=== PATIENT | female | born 1945 ===

== ENCOUNTER 2024-05-19 06:44 | Day surgery (SDC) | payer MEDICARE, SELFPAY ==
[2024-05-15 11:09] LABS: Hematocrit 40.7 % (37.0-47.0); Hemoglobin 13.8 g/dL (12.0-16.0); Mean Corp Hgb Conc. 33.9 g/dL (33.0-37.0); Mean Corpuscular Volume 88.5 fL (81.0-99.0); Mean Platelet Volume 8.9 fL (7.4-10.4); Platelet Count 245 10^3/uL (130-400); White Blood Cell Count 4.3 10^3/uL (4.8-10.8)
[2024-05-15 13:27] LABS: Blood Urea Nitrogen 18 mg/dl (7-17); Calcium 9.7 mg/dl (8.4-10.2); Carbon Dioxide 25 mmol/L (22-30); Chloride 104 mmol/L (98-107); Glucose 96 mg/dl (70-99); Potassium 4.7 mmol/L (3.5-5.1); Sodium 139 mmol/L (135-145); eGFR > 60.00
[2024-05-19] VITALS (22 sets, daily range): BP systolic 93–143; BP diastolic 51–72; BMI 32.5
[2024-05-19] MEDS: HEPARIN 5000 UNITS SC (10:04)
[2024-05-19] MEDS: Pyridium 200 MG PO (10:05)
[2024-05-19] MEDS: NORMOSOL-R 1000 IV ×2 (10:05→20:36)
[2024-05-19] MEDS: EMEND 40 MG PO (10:11)
[2024-05-19] MEDS: DILAUDID 0.5 MG IV (13:38)
--- NOTE | 2024-05-19 14:19 | SUR.PHASEI ---
Pt more drowsy O2 sat in 80s, 02 4L applied with O2 sat 94-98%. HR rhythm chris with PACs, ? PVCs, Pt denies chest pain or SOB, Dr Phillips aware, 12 Lead EKG orderes BP stable
--- NOTE | 2024-05-19 16:52 | CON.CAR ---
Addendum entered and electronically signed by Hardy Quiroz MD 05/19/24 17:29:
Patient seen and examined in collaboration with FURNITURE SALES CONSULTANT; agree with below.
-Patient with no previous cardiac history, but medical history as outlined below (including essential tremor, on propranolol) who underwent a 79 year-old gynecologic procedure; Cardiology consulted for bradycardia and PACs.
-The patient denies any cardiac symptoms currently; no chest pain, shortness of breath, or palpitations.
-The patient is being admitted; monitor on telemetry overnight.
-Heart rate noted to be down to 50s on telemetry; hold propranolol for now.
-Echocardiogram tomorrow.
-Will reevaluate tomorrow.
Original Note:
Consultation
Consultation Request
Date/Time Consultation Requested: 05/19/2024 17:00
Date/Time Consultation Performed: 05/19/2024 17:15
Requesting Provider: Dr. Finn
Performing Provider: MISSY Tapia for Dr. Quiroz
Reason for Consultation: Abnormal EKG
Medical History
-
Chief Complaint: Uterovaginal prolapse
History of Present Illness:
Elaine Forde is a 79-year-old female with GERD, dyslipidemia, essential tremor, and former smoker who presented for robotic supracervical hysterectomy, BSO, sacrocolpopexy, posterior colporrhaphy and perineoplasty which was completed this
afternoon by Dr. Finn. She had no intraoperative complications. Cardiology was consulted for abnormal EKG postoperatively. She has PACs and episodes of bigeminy on telemetry. She is occasionally symptomatic with shortness of breath with PACs.
She is having no palpitations, chest pain, nor dizziness. She has never seen a senior dynamics crm developer. She has no family history of coronary artery disease nor sudden cardiac .
Past Medical History
Past Medical History: GERD, Hypercholesterolemia and Other (Essential tremor)
Past Surgical History: Orthopedic
Social History
Tobacco: Former Smoker (Quit 1985)
Alcohol: None
Employment: Retired
Family History
Family History: Reviewed & Not Pertinent (Denies early CAD and SCD)
Allergies / Home Medications
Allergy/AdvReac Type Severity Reaction Status Date / Time
adhesive tape Allergy Itching Verified 05/19/24 09:42
latex Allergy Unknown Verified 05/19/24 09:42
sesame oil Allergy Swelling Verified 05/19/24 09:42
sesame seed Allergy Swelling Verified 05/19/24 09:42
�Medication �Instructions �Recorded �Confirmed �Type
calcium carb 333 mg-vit D3 133 1 tab PO DAILY 05/18/24 05/19/24 History
unit-mag ox 133 mg-zinc oxide 5 mg
tab
fluticasone propionate 50 1 spray intranasal DAILY 05/18/24 05/19/24 History
mcg/actuation nasal
spray,suspension
montelukast 10 mg tablet 10 mg PO DAILY 05/18/24 05/19/24 History
multivitamin 1 tab PO DAILY 05/18/24 05/19/24 History
omeprazole 20 mg tablet,delayed 20 mg PO DAILY 05/18/24 05/19/24 History
release
propranolol 10 mg tablet 10 mg PO DAILY 05/18/24 05/19/24 History
vitamin B complex 1 cap PO DAILY 05/18/24 05/19/24 History
Review of Systems
-
History Source: Patient
All other systems: Negative unless noted
Constitutional: Other (Anxious)
EENT: No Symptoms
Respiratory: No Symptoms
Cardiac: No Symptoms
Abdomen/GI: No Symptoms
: No Symptoms
Musculoskeletal: No Symptoms
Skin: No Symptoms
Neurological: No Symptoms
Endocrine: No Symptoms
Hematologic/Lymphatic: No Symptoms
Physical Exam
Vital Signs
Temp Pulse Resp BP Pulse Ox
97.1 F 51 7 118/56 100
05/19/24 13:15 05/19/24 15:30 05/19/24 15:30 05/19/24 15:30 05/19/24 15:30
Physical Exam
General: Well Developed, Well Nourished, No Apparent Distress and Comfortable
HEENT: Normocephalic and Anicteric
Respiratory: Clear and Other (Supplemental oxygen via nasal cannula)
Cardiac: S1/S2 and Regular Rhythm; Negative Peripheral Edema
Breast: Deferred by me
GI: Soft, Non Tender, Non Distended and Normal Bowel Sounds
Rectal: Deferred by Provider
Genito-urinary: No Costovertebral Tender
Musculoskeletal: No Clubbing and No Cyanosis
Skin: Dry
Neuro: AO x 3
Psych: Calm
Impression / Plan
-
BACKGROUND: 79F with GERD, dyslipidemia, essential tremor, and former smoker who presented for robotic supracervical hysterectomy, BSO, sacrocolpopexy, posterior colporrhaphy and perineoplasty
Abnormal EKG
-Telemetry overnight
-Echocardiogram in a.m.
-Electrolytes are pending
-EKG in a.m.
Robotic supracervical hysterectomy, BSO, sacrocolpopexy, posterior colporrhaphy and perineoplasty by Dr. Finn 05/19/2024
-No intraoperative complications, formal operative report is pending
Essential tremor, on propranolol
Dyslipidemia, on rosuvastatin
GERD on omeprazole
Data Reviewed
-
EKG: Report Reviewed by me (Sinus bradycardia with PACs (bigeminy), rate 56)
Labs: Labs Reviewed by me
Old Records: Reviewed (Outpatient urogynecology notes)
[2024-05-19 16:57] LABS: Hematocrit 32.7 % (37.0-47.0); Hemoglobin 11.9 g/dL (12.0-16.0)
--- NOTE | 2024-05-19 17:03 | CON.HOSP ---
Consultation
-
Date/Time Consultation Requested: 1631
Date/Time Consultation Performed: 1651
Requesting Provider: Dr. Finn
Reason for Consultation: Hypoxic and bradycardic with PAC's
Family Physician
-
Family Physician: NOT KNOW UNKNOWN - PT DOES
Chief Complaint
-
uncomplicated robotic hysterectomy and sacrocolpopexy
History of Present Illness
79 female history of essential tremor on propranolol, high cholesterol, hypertension, acid reflux who presented for an elective uncomplicated robotic hysterectomy and sacrocolpopexy. Hospital medicine consulted for bradycardia hypoxia with PACs.
At bedside on 2 L nasal cannula with SpO2 of 98% and with a heart rate on compliance monitor of between 55-60, nursing showed me a telemetry strips which demonstrated episodes of bradycardia down to the low 50s high 40s and bigeminy with intermittent
PACs.
When I spoke with her she still feels sob, no chest pain dizziness. States that she uses propranolol for essential tremor on daily basis. Does not use o2 nor CPAP at home. She does not smoke nor use alcohol/drugs.
Medical History
Allergies / Home Medications
Allergies reflects when Allergies were last updated in [facility].
Home Medications with original date entered in [facility]
Allergy/Medication List:
Allergies
Allergy/AdvReac Type Severity Reaction Status Date / Time
adhesive tape Allergy Itching/Severe Verified 05/19/24 17:13
Itching;
latex Allergy Unknown Verified 05/19/24 09:42
sesame oil Allergy Swelling/Facial Verified 05/19/24 17:13
Swelling;
Hives;
sesame seed Allergy Swelling/Facial Verified 05/19/24 17:13
Swelling;
Hives;
Home Medications
calcium carb 333 mg-vit D3 133 unit-mag ox 133 mg-zinc oxide 5 mg tab 1 tab PO DAILY 05/18/24
fluticasone propionate 50 mcg/actuation nasal spray,suspension 1 spray intranasal DAILY 05/18/24
montelukast 10 mg tablet 10 mg PO DAILY 05/18/24
multivitamin 1 tab PO DAILY 05/18/24
omeprazole 20 mg tablet,delayed release 20 mg PO DAILY 05/18/24
propranolol 10 mg tablet 10 mg PO DAILY 05/18/24
vitamin B complex 1 cap PO DAILY 05/18/24
Physical Exam
Vital Signs
Vital Signs
Temp Pulse Resp BP Pulse Ox
97.1 F 51 7 118/56 100
05/19/24 13:15 05/19/24 15:30 05/19/24 15:30 05/19/24 15:30 05/19/24 15:30
Physical Exam
General: Well Developed and Well Nourished
HEENT: Normocephalic, Anicteric and Moist Mucous Membranes
Respiratory: Clear and Non Labored Respirations
Cardiac: S1/S2, Regular Rhythm and Bradycardia
Breast: Deferred by me
GI: Soft, Non Tender, Non Distended and Normal Bowel Sounds
Rectal: Deferred by Provider
Genito-urinary: Martell Catheter
Musculoskeletal: No Clubbing and No Cyanosis
Skin: Warm
Neuro: Awake, Alert, Oriented, AO x 3 and No Motor Deficits
Psych: Calm
Laboratory Results
-
Laboratory Results
05/19/24 16:48
Impression / Plan
-
79 female who states that she snores at night, has not reported to her that she wakes up gasping for air, however it does admit to not feeling rested during the daytime. She has a BMI of 32. I suspect there is likely a component of sleep
apnea likely obstructive along with anesthesia. I suspect improved oxygenation and heart rate with/as anesthesia wears off. However, will check 2D echocardiogram, check TSH. Additionally will check electrolytes to maintain goal potassium greater
than 4 magnesium greater than 2. Consult cardiology. She will need to see outpatient sleep medicine for sleep study. Additionally, would provide incentive spirometer for which I reviewed in therapy have to use this with her however nursing will
need to show her again. Ideally 10 times per hour. Provide DVT prophylaxis.
[2024-05-19 18:23] LABS: TSH Reflex To Free T4 1.27 uIU/ml (0.47-4.68)
--- NOTE | 2024-05-19 18:41 | PTCARENOTE ---
Pt arrived to 2S in stretcher, slid to bed with assistance via NSG staff. Full assessment completed. Nasal cannula maintained, Pt A+Ox3, lungs clear but diminished and shallow. Heart irregular, telemetry applied. Pulses palpable, no edema . Abdomen
round and obese, pt eating dinner, denies nausea. Martell catheter clean and intact draining yellow urine, vaginal packing maintained. Bed locked and in the lowest position, safety maintained. Oriented to room and call wooten. Family at bedside.
[2024-05-19 19:41] LABS: ALT (SGPT) 16 U/L (0-35); AST (SGOT) 24 U/L (14-36); Albumin 4.1 g/dl (3.5-5.0); Alkaline Phosphatase 85 U/L (38-126); Blood Urea Nitrogen 14 mg/dl (7-17); Calcium 8.5 mg/dl (8.4-10.2); Carbon Dioxide 25 mmol/L (22-30); Chloride 104 mmol/L (98-107); Estimated Creatinine Clearance 85 ml/min; Glucose 165 mg/dl (70-99); Magnesium 2.1 mg/dl (1.6-2.3); Potassium 4.1 mmol/L (3.5-5.1); Sodium 135 mmol/L (135-145); Total Bilirubin 0.9 mg/dl (0.2-1.3); Total Protein 6.8 g/dl (6.3-8.2); eGFR > 60.00
[2024-05-19 19:52] LABS: Troponin I < 0.012 ng/ml
[2024-05-19] MEDS: LOVENOX 40 MG SC (20:36)
[2024-05-19] MEDS: TORADOL 15 MG IV (20:37)
[2024-05-19] MEDS: MYLICON 80 MG PO (20:46)
[2024-05-20] MEDS: TORADOL 15 MG IV ×3 (00:26→11:41)
[2024-05-20] MEDS: NORMOSOL-R IV (02:02)
[2024-05-20 02:29] LABS: Troponin I < 0.012 ng/ml
[2024-05-20 03:22] VITALS: BP 123/64
[2024-05-20] MEDS: NORMOSOL-R 1000 IV (04:00)
--- NOTE | 2024-05-20 05:20 | PTCARENOTE ---
IFC & vaginal packing removed at 0515 per orders. Hat placed in toilet, javier pad in place. Pt given time and amount.
[2024-05-20 06:48] LABS: Hematocrit 33.8 % (37.0-47.0); Hemoglobin 11.9 g/dL (12.0-16.0); Mean Corp Hgb Conc. 35.2 g/dL (33.0-37.0); Mean Corpuscular Hgb 30.3 pg (27.0-31.0); Mean Platelet Volume 9.1 fL (7.4-10.4); Platelet Count 228 10^3/uL (130-400); Red Blood Cell Count 3.93 10^6/uL (4.20-5.40); Red Cell Dist. Width 12.6 % (11.5-14.5); White Blood Cell Count 11.5 10^3/uL (4.8-10.8)
[2024-05-20 07:26] LABS: Blood Urea Nitrogen 15 mg/dl (7-17); Carbon Dioxide 21 mmol/L (22-30); Chloride 106 mmol/L (98-107); Estimated Creatinine Clearance 85 ml/min; Potassium 4.3 mmol/L (3.5-5.1); Sodium 136 mmol/L (135-145)
[2024-05-20 07:40] VITALS: BP 122/59
[2024-05-20] MEDS: PROTONIX 40 MG PO (08:24)
[2024-05-20] MEDS: SINGULAIR 10 MG PO (08:24)
--- NOTE | 2024-05-20 08:29 | W.PN.GYN ---
Today's Communication / Plan
-
[place] Echo and cardiology recommendations. Likely discharge later in afternoon
Physician Note
-
S:
Patient was stable overnight POD1 sp robotic supracervical hysterectomy, b/l salpingoopherectomy, sacrocolpopexy, posterior repair. Cardiology consulted yesterday for asymptomatic bradycardia with PACs. They recommended Echo today. H/H stable and
troponins normal. EKG this AM notes continued bradycardia. Bradycardia resolved in AM. Patient denies SOB, chest pain, palpitations, dizziness, nausea. Abdominal pain controlled.
O:
Intake and Output
05/18/24 05/19/24 05/20/24 05/21/24
06:59 06:59 06:59 06:59
Intake Total 3105 / 3105
Output Total 4110 / 4110
Balance -1005 / -1005
Intake:
Oral fluids 480 / 480
IV fluids (Total) 2625 / 2625
Normosol 1400 / 1400
Output:
Urine, [place] 4110 / 4110
Vital Signs
Temp Pulse Resp BP Pulse Ox
98.1 F 67 18 122/59 97
05/20/24 07:40 05/20/24 07:40 05/20/24 07:40 05/20/24 07:40 05/20/24 07:40
Lab Results
05/20/24 05:34
05/20/24 05:34
Troponin I < 0.012 ng/ml 05/20/24 01:41
GA: Well appearing elderly female in NAD. Alert
Abd: incisions intact covered with dermabond, no bleeding or dicharge noted
/NURSE EMERGENCY ROOM: mild spotting noted on pad, no visible clots
A/P
POD1 sp robotic supracervical hysterectomy, b/l salpingectomy, sacrocolpopexy, posterior repair and single incision sling, course complicated by bradycardia and PACs on EKG. Cardiology was consulted who recommended repeat EKG and Echocardiogram in
AM. Bradycardia resolved this morning.
- Vitals
- strict Is and Os
- Followup TOV and place ingram if PVR <150ml
- DVT prophylaxis sq heparin and scds
- Home medications
- Analgesics prn
- Regular diet
- Social work consult for home services on discharge
- Possible discharge home in PM once cleared by cardiology
Postop bradycardia
- Followup Cardiology recommendations
- Continue to hold beta shai
- Continue telemetry
- Bedrest until cleared by cardiology
- Followup with PCP for outpatient referral for sleep study
--- NOTE | 2024-05-20 10:27 | W.PN.CD ---
Today's Communication / Plan
-
-No significant pauses noted on telemetry; brief run of PSVT noted on telemetry (asymptomatic, benign).
-Echocardiogram today was normal.
-Can resume home dose of propranolol 10 mg daily.
-Can follow-up with Cardiology as an outpatient.
Impression / Plan
-
BACKGROUND: 79F with GERD, dyslipidemia, essential tremor, and former smoker who presented for robotic supracervical hysterectomy, BSO, sacrocolpopexy, posterior colporrhaphy and perineoplasty
Asymptomatic bradycardia/PSVT:
-No significant pauses noted on telemetry; brief run of PSVT noted on telemetry (asymptomatic, benign).
-Echocardiogram today was normal.
-Can resume home dose of propranolol 10 mg daily.
-Can follow-up with Cardiology as an outpatient.
Robotic supracervical hysterectomy, BSO, sacrocolpopexy, posterior colporrhaphy and perineoplasty by Dr. Finn 05/19/2024
-No intraoperative complications; stable.
Essential tremor, on propranolol
Dyslipidemia, on rosuvastatin
GERD on omeprazole
Physical Exam
Vital Signs/Labs
Vital Signs
Temp Pulse Resp BP Pulse Ox
98.1 F 67 18 122/59 97
05/20/24 07:40 05/20/24 07:40 05/20/24 07:40 05/20/24 07:40 05/20/24 07:40
05/19/24 05/20/24 05/21/24
06:59 06:59 06:59
Actual Weight 99.75 kg
05/20/24 05:34
05/20/24 05:34
Magnesium 2.1 mg/dl (1.6-2.3) 05/19/24 19:15
LAB Results
05/19/24 05/19/24 05/19/24
17:34 18:00 19:15
Troponin I Cancelled Cancelled < 0.012
05/20/24 05/20/24
01:41 09:30
Troponin I < 0.012 Cancelled
Physical Exam
Constitutional: No acute distress and Comfortable
EENT: Anicteric and Moist mucous membranes
Cardiovascular: Rhythm & rate is regular, Pedal edema is absent, Systolic murmur absent and S1S2 is normal
Respiratory: Respiratory effort normal and Lungs clear to auscul.
GI: Soft
Neuro/Psych: AO x 3
Other: Skin (Warm, dry, intact)
Data Reviewed
-
Date of Service: May 20, 2024
EKG: Tracing Personally Visualized and interpreted (Telemetry: Sinus rhythm, brief run of PSVT)
Labs: Labs Reviewed by me
--- NOTE | 2024-05-20 11:27 | CM ---
CM following rte: discharge planning.
Reviewed pt's chart, met with pt.
Pt is a 79 year old female, admitted with SDC status and primary dx of POD1 sp robotic supracervical hysterectomy.
Pt reports she lives with in an apartment 45 steps to enter, has 32 supportive children.pt reports her will have a surgery tomorrow and her son will help. 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 No DME, VN or SNF
history.
Discharge order noted. Pt is awre, expressed her agreement with discharge and she stated her son will transport her home.
CM consulted to arrange VN services. Pt is awre, expressed her agreement. A list of VN vendors provided. pt preferred [facility]. A referral to [facility] made.
PCP: Dr. Abel
Pharmacy: [facility]
Please fax discharge instructions to [facility] at [phone]
D/C pollard: home with [facility] and family support. Son to transport.
[2024-05-20 11:33] VITALS: BP 165/63
[2024-05-20] MEDS: INDERAL 10 MG PO (11:40)
== END 2024-05-20 13:46 | disposition home or self-care (01) ==
LOC: SDS 06:44
PROVIDERS: ATTENDING PHYSICIAN Obstetrics & Gynecology; CONSULT PHYSICIAN Hospitalist; CONSULT PHYSICIAN Internal Medicine
DX: N81.3 Complete uterovaginal prolapse (principal); N39.3 Stress incontinence (female) (male); G25.0 Essential tremor; E78.00 Pure hypercholesterolemia, unspecified; K21.9 Gastro-esophageal reflux disease without esophagitis; R00.1 Bradycardia, unspecified; I10 Essential (primary) hypertension; Z87.891 Personal history of nicotine dependence
CPT/HCPCS: 57425; 58542; 57250; 88305; 36415; 80048; 80051; 80053; 82565; 83735; 84443; 84484; 84520; 85014; 85018; 85027; 86850; 86900; 86901; 93005; 93306; C1763